=== PATIENT | female | born 1940 | race Caucasian/White ===

== ENCOUNTER → 2020-01-10 11:18 | Outpatient (CLI) | payer MEDICARE, SELFPAY ==
--- NOTE | ~2020-01-10 | MM_ITS ---
EXAMINATION: MM screening [facility] HISTORY: Screening mammogram TECHNIQUE: Craniocaudal and mediolateral oblique 3-D tomosynthesis images were obtained and synthetic 2-D images were generated. CAD analysis was submitted and interpreted. COMPARISON: No prior mammogram is available for comparison at this institution. BREAST PARENCHYMAL COMPOSITION: There are scattered areas of fibroglandular density. FINDINGS: RIGHT BREAST: An asymmetry is present in the middle third of the slightly outer breast 9 cm from the nipple on the craniocaudal view. LEFT BREAST: There is no evidence of suspicious mass, calcification, or architectural distortion to s uggest malignancy. IMPRESSION: 1. Right breast asymmetry on the craniocaudal view which may represent the patient's baseline however no comparison is currently available. 2. Comparison with prior mammograms is necessary. BI-RADS Category 0: Incomplete: Needs comparison with prior mammograms. Reviewed, dictated and finalized at location A. IMPRESSION: 1. Right breast asymmetry on the craniocaudal view which may represent the bruno ent's baseline however no comparison is currently available. 2. Comparison with prior mammograms is necessary. BI-RADS Category 0: Incomplete: Needs comparison with prior mammograms.
== END ==
PROVIDERS: PCP Family Medicine; Visit Provider Family Medicine
DX: Z12.31 Encounter for screening mammogram for malignant neoplasm of breast (principal); R92.8 Other abnormal and inconclusive findings on diagnostic imaging of breast
CPT/HCPCS: 77063; 77067

== ENCOUNTER → 2021-01-11 10:58 | Outpatient (CLI) | payer MEDICARE, SELFPAY ==
--- NOTE | ~2021-01-11 | MM_ITS ---
EXAMINATION: MM screening [facility] HISTORY: Screening mammogram TECHNIQUE: Craniocaudal and mediolateral oblique 3-D tomosynthesis images were obtained and synthetic 2-D images were generated. CAD analysis was submitted and interpreted. COMPARISON: 01/10/2020, 11/02/2018, 10/24/2017 BREAST PARENCHYMAL COMPOSITION: There are scattered areas of fibroglandular density. FINDINGS: Scattered benign-appearing calcifications are present. There is no evidence of suspicious m ass, calcification, or architectural distortion to suggest malignancy in either breast. There has bee n no suspicious interval change. IMPRESSION: 1. No mammographic evidence of malignancy. 2. Recommend routine screening mammography in one year. BI-RADS Category 2: Benign finding(s). Reviewed, dictated and finalized at location A.
== END ==
PROVIDERS: PCP Family Medicine; Visit Provider Family Medicine
DX: Z12.31 Encounter for screening mammogram for malignant neoplasm of breast (principal)
CPT/HCPCS: 77063; 77067

== ENCOUNTER 2021-07-13 11:06 | Outpatient (RCR) | payer MEDICARE, SELFPAY ==
--- NOTE | 2021-07-13 11:51 | PTOPEVAL ---
Thank you for referring Yasmine Rodriguez to [facility].? The patient is scheduled to be seen for therapy? ____x/week for ___ weeks. Please review, sign, date and return this plan of care MORE. I agree with and certify that the following plan of care is medically necessary. Referring Physician Date Admitting Provider: Attending Provider: Tory Pena MD Referring Provider: *PT Outpatient Evaluation Start: 07/13/21 11:20 Freq: Status: Active Protocol: Document 07/13/21 11:20 [facility] (Rec: 07/13/21 11:48 [facility] [id number]) Therapy Assessment Status Assessment Status Assessment Status Evaluation Evaluation Information Problem Diagnosis lumbar radiculopathy Onset 06/12/21 Additional Evaluation Detail oswestry = 36% functionally declined Subjective Information patient reports she is having Query Text:As Reported By Patient/ pain in the lower back and Family down the R side of her lower back into the R hip. she reports the pain does gravitate down the R LE. she reports pulling up the R LE feels heavier going forward than to the side. she reports she has pain in the front and inner part of the R upper thigh and the R buttock and R lower back. she reports she had xrays of the lumbar spine. she reports she has arthritis and scoliosis. she reports she has decreased pain with heat, sitting in recliner. she reports sitting in a hard and upright chair increases her pain. she reports she has been having difficulty with shopping, and standing for increased time (10 minutes). Pain Assessment Timing of Pain Assessment Timing of Pain Assessment Assessment Pain Scale Pain Scale Used Numeric (1 - 10) Self Report Pain Assessment Right Lower Back Reported Pain Level 5 Pain Radiation Right Leg Pain Frequency Acute,Continuous Greatest Pain Intensity 5 Pain Score Pain Score 5: Self Report Interventions Used Interventions Used By Clinicians Heat,Ice,Rest Pain Relief Interventions Used By Medication Patient Other Alleviating Interventions tyl
--- NOTE | 2021-08-08 14:32 | PTOPEVAL ---
Thank you for referring Yasmine Rodriguez to [facility].? The patient is scheduled to be seen for therapy? ____x/week for ___ weeks. Please review, sign, date and return this plan of care MORE. I agree with and certify that the following plan of care is medically necessary. Referring Physician Date Admitting Provider: Attending Provider: Tory Pena MD Referring Provider: *PT Outpatient Evaluation Start: 07/13/21 11:20 Freq: Status: Active Protocol: Document 08/08/21 13:30 [facility] (Rec: 08/08/21 14:31 [facility] [id number]) Evaluation Information Problem Diagnosis lumbar radiculopathy Onset 06/12/21 Pain Assessment Timing of Pain Assessment Timing of Pain Assessment Assessment Pain Scale Pain Scale Used Numeric (1 - 10) Self Report Pain Assessment Right Lower Back Reported Pain Level 2 Greatest Pain Intensity 5 Pain Score Pain Score 2: Self Report Interventions Used Interventions Used By Clinicians Activity or ADL's,Education, Electrical Stimulation, Exercise,Heat Cervical and Lumbar ROM Lumbar ROM Lumbar Flexion Active Ankle Query Text:Hands to: Lumbar Extension (0-40) 20 Query Text:Active in Degrees Lumbar Lateral Flexion Right (0-40) 30 Query Text:Active in Degrees Lumbar Lateral Flexion Left (0-40) 30 Query Text:Active in Degrees Lower Extremity Muscle Strength Testing General Lower Extremity Strength Gross Lower Extremity Strength 5/5 bilateral ankle DF 5/5 bilateral knee extension 5/5 bilateral knee flexion 4-/5 R hip flex 4+/5 L hip flex Muscle Length Testing Muscle Length Testing Left Hamstring Length 10 Query Text:(90 - 90 Position) Right Hamstring Length 10 Query Text:(90 - 90 Position) General Exercise General Exercises Exercise Description Ther ex Query Text:Record Sets, Reps, -ppt x 20 Resistance, and Position -ppt with alt hip flex x 20 -crunch x 20 -diag crunch x 10 ea forrest -supine dying bug x10 bilat -bridging 2 minutes with 10 second hold -standing hip abd/ext x 20 ea forrest -standing hip flex with ppt x 20 -re-evaluation 5 minutes Modalities Electrical Stimulation Lower Back Stimulation Type Premodulated Treatment Duration (minutes)
== END 2021-08-08 16:33 | disposition home or self-care (01) ==
LOC: CHSPT 11:06
PROVIDERS: Visit Provider Family Medicine
DX: M54.50 Low back pain, unspecified (principal)
CPT/HCPCS: 97014; 97110; 97161; G0283

== ENCOUNTER → 2022-02-19 11:25 | Outpatient (CLI) | payer MEDICARE, SELFPAY ==
--- NOTE | ~2022-02-19 | MM_ITS ---
EXAMINATION: MM screening [facility] HISTORY: Screening mammogram TECHNIQUE: Craniocaudal and mediolateral oblique 3-D tomosynthesis images were obtained and synthetic 2-D images were generated. CAD analysis was submitted and interpreted. COMPARISON: 01/11/2021, 01/10/2020, 11/02/2018 BREAST PARENCHYMAL COMPOSITION: There are scattered areas of fibroglandular density. FINDINGS: Scattered benign-appearing calcifications are present. There is no suspicious mass, calcifi cation, or architectural distortion to suggest malignancy in either breast. There has been no suspici ous interval change. IMPRESSION: 1. No mammographic evidence of malignancy. 2. Recommend routine screening mammography in one year. BI-RADS Category 2: Benign finding(s). Reviewed, dictated and finalized at location A.
== END ==
PROVIDERS: PCP Family Medicine; Visit Provider Family Medicine
DX: Z12.31 Encounter for screening mammogram for malignant neoplasm of breast (principal)
CPT/HCPCS: 77063; 77067

== ENCOUNTER → 2023-04-12 09:37 | Outpatient (CLI) | payer MEDICARE, SELFPAY ==
--- NOTE | ~2023-04-12 | MM_ITS ---
EXAMINATION: MM screening [facility] HISTORY: Screening mammogram TECHNIQUE: Craniocaudal and mediolateral oblique 3-D tomosynthesis images were obtained and synthetic 2-D images were generated. CAD analysis was submitted and interpreted. COMPARISON: 02/19/2022, 01/11/2021, 01/06/2020 bilateral screening mammogram examinations BREAST PARENCHYMAL COMPOSITION: There are scattered areas of fibroglandular density. FINDINGS: Multiple benign calcifications are noted bilaterally. Stable fibroglandular asymmetry. Ther e is no evidence of suspicious mass, calcification, or architectural distortion to suggest malignancy in either breast. There has been no suspicious interval change. IMPRESSION: 1. Bilateral benign calcifications. No mammographic evidence of malignancy. 2. Recommend routine screening mammography in one year. BI-RADS Category 2: Benign finding(s). Reviewed, dictated and finalized at location A. ONAL ACCOUNT DIRECTOR
== END ==
DX: Z12.31 Encounter for screening mammogram for malignant neoplasm of breast (principal)
CPT/HCPCS: 77063; 77067

== ENCOUNTER 2023-06-27 16:28 | Emergency (ER) | payer MEDICARE, SELFPAY ==
--- NOTE | ~2023-06-27 | XR_ITS ---
EXAMINATION: XR knee RT 3V DATE: 06/27/2023 17:42 INDICATION: Right knee pain. Fall. TECHNIQUE: 3 views of right knee were obtained. COMPARISON: None. FINDINGS: Bone alignment is normal. There is a fracture of lateral tibial plateau without depression. There is a fracture of fibular neck with impaction. There is moderate osteoarthritis of medial marcela rtment and mild osteoarthritis of lateral and patellofemoral femoral compartments. There is a moderat e-sized knee joint effusion. IMPRESSION: 1. Lateral tibial plateau fracture. 2. Fibular neck fracture. 3. Moderate right knee osteoarthritis. 4. Moderate-sized knee joint effusion. Reviewed, dictated and finalized at location E. MACHINE SET UP OPERATOR
--- NOTE | ~2023-06-27 | XR_ITS ---
EXAMINATION: XR tibia fibula RT 2V DATE: 06/27/2023 17:42 INDICATION: Right lower leg pain. Fall. TECHNIQUE: 2 views of right tibia and fibula on 3 radiographs were obtained. COMPARISON: None. FINDINGS: There is a fracture of lateral tibial plateau without depression. There is a fracture of fi bular neck with impaction. There is moderate right knee osteoarthritis. IMPRESSION: 1. Lateral tibial plateau fracture. 2. Fracture of fibular neck. 3. Moderate right knee osteoarthritis. Reviewed, dictated and finalized at location E. FIRE PREVENTION SPECIALIST
--- NOTE | ~2023-06-27 | XR_ITS ---
EXAMINATION: XR shoulder RT min 2V DATE: 06/27/2023 17:42 INDICATION: Right shoulder pain. Fall. TECHNIQUE: 3 views of right shoulder were obtained. COMPARISON: None. FINDINGS: There is superior subluxation of right humeral head with narrowing of the subacromial space , consistent with rotator cuff tear. No fracture. There is severe osteoarthritis of acromioclavicular joint. The glenohumeral joint is not well profiled. IMPRESSION: 1. Right rotator cuff tear. 2. Severe osteoarthritis of acromioclavicular joint. Reviewed, dictated and finalized at location E. ACULTURE DESIGNER
[2023-06-27 16:28] VITALS: BP 139/79; PULSE 60; RESP 18; TEMP 36.2; O2SAT 100
--- NOTE | 2023-06-27 17:00 | ED.FALL ---
HPI - Fall General Chief Complaint: Fall Stated Complaint: fall down stairs; right shoulder and knee paina Time Seen by Provider: 06/27/23 16:49 Source: patient Mode of arrival: ambulatory Limitations: no limitations History of Present Illness HPI Narrative: Patient is an 82-year-old female with significant past medical history that presents today with fall and multiple injuries. Patient fell going down the stairs at the last stair fell backwards and on her side hitting her right shoulder, her right knee And right tibia. She states that is very painful and she was walking on the stairs and his hematemesis step and slipped backwards. He is taking Tylenol for this. She cannot take ibuprofen or Toradol also because she is diabetic and has chronic kidney disease. He came he has gotten worse lately so she in the midline to take down and/or other medications That do not affect the kidneys. MD complaint: fall Onset (ago): hour(s) Fall from: standing Fall witnessed: yes, by family Place fall occurred: home Loss of consciousness: none Prolonged down time: no Symptoms prior to fall: none Context: tripped/slipped Location of injury - extremities: Right: shoulder, knee and lower leg Severity: moderate Severity scale (1-10): 4 Quality: sharp and stabbing Associated symptoms (after fall): denies Related Data Allergies Allergy/AdvReac Type Severity Reaction Status Date / Time Sulfa (Sulfonamide Allergy Unknown hives/swell Verified 09/01/17 06:16 Antibiotics) ing Review of Systems Review of Systems: All systems reviewed & are unremarkable except as noted in HPI and below Constitutional: Constitutional: Reports no additional constitutional complaints Eyes: Eyes: Reports no additional eye complaints ENT: Reports system reviewed and no additional complaints, except as documented Cardiovascular: Cardiovascular: Reports no additional cardiovascular complaints Respiratory: Respiratory: Reports no additional respiratory complaints Gastrointestinal: Gastrointestinal: Reports no additional gastrointestinal complaints Genitourinary: Genitourinary: Reports no additional female genitourinary complaints Musculoskeletal: Musculoskeletal: Reports no additional musculoskeletal complaints Integumentary/Breasts: Skin/Breast: Reports system reviewed and no additional complaints, except as docu Neurologic: Reports system reviewed and no additional complaints, except as documented Psychiatric: Psychiatric: Reports no additional psychiatric complaints Endocrine: Endocrine: Reports no additional endocrine complaints Hematologic/Lymphatic: Hematologic/Lymphatic: Reports no additional hematologic/lymphatic complaints Allergic/Immunologic: Allergic/Immunologic: Reports no additional allergic/immunologic complaints Exam Const: General: healthy appearing Nutritional Appearance: well nourished Orientation/consciousness: patient oriented x3 Limitations: no limitations HENMT: Head: normal to inspection Ears: external ears normal Face/Nose/Sinus: Normal external nose present Face and sinus: normal facial exam Mouth: Yes Normal oral and palatal mucosa present Eyes: Conjunctivae: conjunctivae normal Pupils: Equal, round and reactive pupils present EOM: EOMs intact bilaterally Direct Ophthalmoscopy: no photophobia Neck: Neck: normal visual inspection Chest: Chest palpation & inspection: normal inspection of the chest Resp: Effort & Inspection: normal respiratory effort Auscultation: clear to auscultation bilaterally Cardio: Rate: regular rate Rhythm: regular rhythm Heart sounds: Murmur heart sound present GI: Inspection: distended Auscultation: normal bowel sounds Back/Spine/Pelvis: Back: no CVA tenderness Skin: General skin exam: normal color Rashes: no rashes Wounds: no wounds Neuro: General: patient oriented x3 Cranial nerves: Yes Nystagmus not present Speech: normal speech Extrem: General: normal to inspection Psy
[2023-06-27] MEDS: traMADol HCL (*CRX) 50 MG TABLET PO (17:06)
[2023-06-27 18:26] VITALS: BP 126/89; PULSE 115; RESP 20; O2SAT 97
--- NOTE | 2023-06-27 18:54 | PC.NURSE ---
extensive assistance with getting pt into wheelchair and into personal vehicle per this rn.
--- NOTE | 2023-06-27 18:56 | PC.NURSE ---
disk of xrays sent with pt
== END 2023-06-27 18:50 | disposition home or self-care (01) ==
PROVIDERS: Emergency Provider Family Medicine
DX: S82.141A Displaced bicondylar fracture of right tibia, initial encounter for closed fracture (principal); S82.491A Other fracture of shaft of right fibula, initial encounter for closed fracture; W10.9XXA Fall (on) (from) unspecified stairs and steps, initial encounter; Y92.009 Unspecified place in unspecified non-institutional (private) residence as the place of occurrence of the external cause
CPT/HCPCS: 73030; 73562; 73590; 99284; A4565; A9270; L1830

== ENCOUNTER 2023-07-02 14:28 | Inpatient (IN) | payer MEDICARE, SELFPAY ==
--- NOTE | 2023-07-02 14:35 | ADMGEN ---
This patient, Yasmine Rodriguez, was admitted to 2nd Floor Room 203-2. Patient/family oriented to hospital policies and general routines including ID bracelet, bed and alarms, visiting hours, pain management, procedures, bathroom and other care routines, personal items, smoking policy, room service/diet, and visiting hours. Information on how to activate the Rapid Response Team has been discussed. Patient/Family are encouraged to report perceived risks to care and to ask questions if they do not understand what they are told or what they should do.
[2023-07-02 15:08] VITALS: BMI 30.3
[2023-07-02 15:11] VITALS: BP 148/43; PULSE 67; RESP 18; TEMP 36.4; O2SAT 92
[2023-07-02 16:00] VITALS: BP 151/55; PULSE 71; RESP 20; TEMP 36.4; O2SAT 97
--- NOTE | 2023-07-02 16:09 | PM.IMHP ---
H&P: HPI History of Present Illness Date/Time: 07/02/23 16:09 Chief Complaint: Swing bed for right tibia plateau fracture and right rotator cuff tear Narrative: This is an 82 year old female patient with a history of well controlled Type 2 DM and CKD who recently fell down some stairs injuring her right leg and right shoulder. Patient initially seen in this ER and was placed in knee immobilizer, given pain meds and discharged home with instructions to be non weight bearing RLE. Pain was not controlled with tramadol as prescribed so she went to [facility] in [place] and was admitted for pain control, ROGER and leukocytosis. Orthopedics consulted on patient and agreed no surgical intervention was indicated. PT/OT worked with patient but because she is non weight bearing to both right upper and right lower extremities she needed SNF for additional therapy before returning home. Patient/family wanted to do Swing bed at our facility rather than stay in [place] for therapy. Patient arrived today in transfer by private vehicle with family but needed help to get out of the car and into wheelchair due to injuries. Review of Systems Review of Systems: All systems reviewed & are unremarkable except as noted in HPI and below PMFSH Social History Social History Smoking packs per day: 0.25 Smoking cigarettes per day: 5.0 Smoking status: Current some day smoker Tobacco type: cigarettes Second hand tobacco smoke exposure: No Alcohol intake: never Substance use: never Do You Feel Safe in your Home?: Yes Lack of Transportation: No Lack of Food: Never True Current Housing: I Have Housing Concerned About Future Housing: No Difficulty Paying Gas/Electric Bills: No Difficulty Paying for Meds: No Currently Unemployed: No Education: Trade/Vocational Certificate Difficulty w/ Childcare or Family Care: No Spiritual care concerns: No Meds Home Medications and Allergies Home Medications Medication Instructions Recorded Confirmed Type Antacid (calcium carbonate) 1,000 mg PRN PRN indigestion 07/02/23 07/02/23 History acetaminophen 500 mg tablet 1,000 mg Q1-4H PRN Pain, Moderate 07/02/23 07/02/23 History docusate sodium 100 mg capsule 100 mg PO DAILY 07/02/23 07/02/23 History enoxaparin 30 mg/0.3 mL 30 mg subcut DAILY 07/02/23 07/02/23 History subcutaneous syringe glipizide 10 mg tablet, extended 10 mg PO DAILY 07/02/23 07/02/23 History release 24 hr glipizide 5 mg tablet 5 mg PO DAILY 07/02/23 07/02/23 History hydrocodone 5 mg-acetaminophen 325 1 tablet PO Q6H PRN Pain, Severe 07/02/23 07/02/23 History mg tablet levothyroxine 100 mcg tablet 100 mcg DAILY 07/02/23 07/02/23 History losartan 50 mg tablet 50 mg PO DAILY 07/02/23 07/02/23 History magnesium oxide 400 mg PO DAILY 07/02/23 07/02/23 History ondansetron HCl 4 mg/2 mL 4 mg IV Q6-8H PRN Nausea 07/02/23 07/02/23 History intravenous syringe polyethylene glycol 1 ea miscellaneous DAILY 07/02/23 07/02/23 History pravastatin 10 mg tablet 10 mg PO HS 07/02/23 07/02/23 History sennosides 8.6 mg tablet (Senokot) 8.6 mg DAILY PRN Constipation 07/02/23 07/02/23 History sodium phosphates 19 gram-7 118 ml RECTAL ONCE 07/02/23 07/02/23 History gram/118 mL enema (Fleet Enema) tramadol 50 mg tablet 50 mg PO Q6H PRN Pain (Scale Score 07/02/23 07/02/23 History 4-6) Allergies Allergy/AdvReac Type Severity Reaction Status Date / Time Sulfa (Sulfonamide Allergy Unknown hives/swell Verified 09/01/17 06:16 Antibiotics) ing Vital Signs Vital Signs - 24 hr 07/02/23 15:11 Temperature 36.4 C L Pulse Rate 67 Respiratory Rate 18 Blood Pressure 148/43 H Pulse Oximetry 92 Oxygen Delivery Room Air Exam Narrative: GENERAL: Well-appearing, well-nourished, and in no acute distress. HEAD: Normocephalic, atraumatic. ENT:? Mucous membranes moist. CHEST: Clear to auscultation.? No
[2023-07-02 17:06] LABS: Glucose Point of Care 186 mg/dl (65-105)
[2023-07-02] MEDS: ACETAMINOPHEN 500 MG TABLET 1000 MG PO (17:42)
[2023-07-02] MEDS: HYDROcodone/acetaminophen (*CRX) 5-325 MG TABLET 1 TAB PO (19:27)
[2023-07-02 20:00] VITALS: PULSE 70; RESP 18; O2SAT 97
[2023-07-02] MEDS: PRAVASTATIN SODIUM 10 MG TABLET PO (21:05)
[2023-07-02] MEDS: ENOXAPARIN 30 MG/0.3 ML SYRINGE SUB-Q (21:06)
[2023-07-03] VITALS: BP 122/52; PULSE 70; RESP 18; TEMP 36.6; O2SAT 97
[2023-07-03] MEDS: HYDROcodone/acetaminophen (*CRX) 5-325 MG TABLET 1 TAB PO ×4 (01:57→22:20)
[2023-07-03] MEDS: LEVOTHYROXINE SODIUM 100 MCG TABLET PO (06:46)
[2023-07-03 07:45] VITALS: BP 150/47; PULSE 63; RESP 16; TEMP 36.4; O2SAT 96
[2023-07-03 08:20] LABS: Glucose Point of Care 159 mg/dl (65-105)
[2023-07-03] MEDS: glipiZIDE XL 5 MG TABCR PO (09:41)
[2023-07-03] MEDS: CYANOCOBALAMIN 1,000 MCG TABLET 1000 MCG PO (09:41)
[2023-07-03] MEDS: OMEGA 3 POLYUNSAT FATTY ACIDS 1 GM CAP PO (09:41)
[2023-07-03] MEDS: ASCORBIC ACID 500 MG TABLET 1000 MG PO (09:41)
[2023-07-03] MEDS: polyethylene glycoL 3350 17 GM POWD.PACK PO (09:42)
[2023-07-03] MEDS: ZINC SULFATE 220 MG CAPSULE PO (09:42)
[2023-07-03] MEDS: IRBESARTAN 150 MG TABLET PO (09:42)
[2023-07-03] MEDS: DOCUSATE SODIUM 100 MG CAPSULE PO (09:42)
[2023-07-03] MEDS: MAGNESIUM OXIDE 400 MG TABLET PO (09:42)
[2023-07-03] MEDS: DICLOFENAC SODIUM 1% 100 GM GEL (*BKC) 1 APPLIC TOPICAL ×2 (13:01→20:15)
[2023-07-03] MEDS: MENTHOL 10% / METHYL SALICYLATE 15% 57 GM TUBE 1 APPLIC TOPICAL (16:17)
[2023-07-03 16:24] LABS: Glucose Point of Care 169 mg/dl (65-105)
[2023-07-03 16:40] VITALS: BP 149/52; PULSE 69; RESP 16; TEMP 36.7; O2SAT 94
[2023-07-03] MEDS: ENOXAPARIN 30 MG/0.3 ML SYRINGE SUB-Q (20:15)
[2023-07-03] MEDS: PRAVASTATIN SODIUM 10 MG TABLET PO (20:15)
[2023-07-03] MEDS: ACETAMINOPHEN 500 MG TABLET 1000 MG PO (23:33)
[2023-07-04] VITALS: BP 183/75; PULSE 70; RESP 15; TEMP 36.6; O2SAT 97
[2023-07-04] MEDS: LEVOTHYROXINE SODIUM 100 MCG TABLET PO (05:43)
[2023-07-04] MEDS: HYDROcodone/acetaminophen (*CRX) 5-325 MG TABLET 1 TAB PO ×3 (05:43→19:19)
[2023-07-04 08:00] VITALS: BP 150/50; PULSE 78; RESP 18; TEMP 36.6; O2SAT 94
[2023-07-04] MEDS: polyethylene glycoL 3350 17 GM POWD.PACK PO (08:52)
[2023-07-04] MEDS: IRBESARTAN 150 MG TABLET PO (08:53)
[2023-07-04] MEDS: glipiZIDE XL 5 MG TABCR PO (08:53)
[2023-07-04] MEDS: ASCORBIC ACID 500 MG TABLET 1000 MG PO (08:53)
[2023-07-04] MEDS: CYANOCOBALAMIN 1,000 MCG TABLET 1000 MCG PO (08:53)
[2023-07-04] MEDS: ZINC SULFATE 220 MG CAPSULE PO (08:54)
[2023-07-04] MEDS: DOCUSATE SODIUM 100 MG CAPSULE PO (08:54)
[2023-07-04] MEDS: MAGNESIUM OXIDE 400 MG TABLET PO (08:54)
[2023-07-04] MEDS: OMEGA 3 POLYUNSAT FATTY ACIDS 1 GM CAP PO (08:54)
[2023-07-04] MEDS: MENTHOL 10% / METHYL SALICYLATE 15% 57 GM TUBE 1 APPLIC TOPICAL (08:55)
[2023-07-04 15:43] VITALS: BP 127/61; PULSE 64; RESP 18; TEMP 36.6; O2SAT 95
[2023-07-04] MEDS: DICLOFENAC SODIUM 1% 100 GM GEL (*BKC) 1 APPLIC TOPICAL (15:49)
[2023-07-04 16:29] LABS: Glucose Point of Care 177 mg/dl (65-105)
--- NOTE | 2023-07-04 19:00 | PC.NURSE ---
Pt doing well c assist x1 and use of gait belt and walker, Pt pivots and moves using good leg and is understanding of non wt bearing to Rt leg. She is able to assist moving herself up in bed. Tolerating well p pain m eds given, call meier at pt side.
[2023-07-04 20:00] VITALS: PULSE 80; RESP 18; O2SAT 97
[2023-07-04] MEDS: PRAVASTATIN SODIUM 10 MG TABLET PO (21:27)
[2023-07-04] MEDS: ENOXAPARIN 30 MG/0.3 ML SYRINGE SUB-Q (21:27)
[2023-07-04 23:38] VITALS: BP 133/67; PULSE 65; RESP 18; TEMP 36.6; O2SAT 96
[2023-07-05] MEDS: HYDROcodone/acetaminophen (*CRX) 5-325 MG TABLET 1 TAB PO ×2 (02:15→20:06)
--- NOTE | 2023-07-05 02:18 | PC.NURSE ---
Pt assisted c gait and walker and pivoting movement to commode, tolerated well and assist back to bed, brace loosened from leg while in recumbant position, pt given [place] per request for her pain in her leg. Call meier at pt side.
[2023-07-05 05:16] LABS: Hematocrit 33.4 % (35.0-42.0); Hemoglobin 10.4 g/dL (11.7-13.8); Mean Corpuscular HGB Conc 31.1 g/dL (32.0-36.0); Mean Corpuscular Hemoglobin 29.1 pg (27.0-31.0); Mean Corpuscular Volume 93.6 fL (78.0-102.0); Platelet Count Result 318 K/mm3 (150-420); Red Blood Count 3.57 M/mm3 (4.20-5.40); Red Cell Distribution Width 12.6 % (11.6-14.4); White Blood Count 11.1 K/mm3 (4.8-10.8)
[2023-07-05 05:24] LABS: Anion Gap 5 mmol/L (8-16); Blood Urea Nitrogen 28 mg/dL (7-18); Carbon Dioxide 30 mmol/L (21-32); Chloride 101 mmol/L (98-108); Estimated CRCL calculation 28 ml/min; Estimated Glomerular Filt Rate 34; Glucose 171 mg/dL (70-99); Osmolality Calculated 291 mOsm/kg (285-295); Potassium 4.9 mmol/L (3.5-5.1); Sodium 136 mmol/L (136-145)
[2023-07-05] MEDS: LEVOTHYROXINE SODIUM 100 MCG TABLET PO (06:24)
[2023-07-05 08:00] VITALS: BP 156/52; PULSE 68; RESP 16; TEMP 36.4; O2SAT 97
[2023-07-05 08:17] LABS: Glucose Point of Care 187 mg/dl (65-105)
[2023-07-05] MEDS: ZINC SULFATE 220 MG CAPSULE PO (09:39)
[2023-07-05] MEDS: ASCORBIC ACID 500 MG TABLET 1000 MG PO (09:39)
[2023-07-05] MEDS: polyethylene glycoL 3350 17 GM POWD.PACK PO (09:39)
[2023-07-05] MEDS: CYANOCOBALAMIN 1,000 MCG TABLET 1000 MCG PO (09:39)
[2023-07-05] MEDS: glipiZIDE XL 5 MG TABCR PO (09:39)
[2023-07-05] MEDS: IRBESARTAN 150 MG TABLET PO (09:39)
[2023-07-05] MEDS: OMEGA 3 POLYUNSAT FATTY ACIDS 1 GM CAP PO (09:39)
[2023-07-05] MEDS: DOCUSATE SODIUM 100 MG CAPSULE PO (09:39)
[2023-07-05] MEDS: MENTHOL 10% / METHYL SALICYLATE 15% 57 GM TUBE 1 APPLIC TOPICAL (09:39)
[2023-07-05] MEDS: MAGNESIUM OXIDE 400 MG TABLET PO (09:39)
[2023-07-05] MEDS: DICLOFENAC SODIUM 1% 100 GM GEL (*BKC) 1 APPLIC TOPICAL ×2 (13:07→20:06)
[2023-07-05 16:00] VITALS: BP 166/58; PULSE 66; RESP 18; TEMP 36.6; O2SAT 96
[2023-07-05 17:20] LABS: Glucose Point of Care 153 mg/dl (65-105)
[2023-07-05] MEDS: ENOXAPARIN 30 MG/0.3 ML SYRINGE SUB-Q (20:05)
[2023-07-05] MEDS: PRAVASTATIN SODIUM 10 MG TABLET PO (20:06)
[2023-07-06] VITALS: BP 156/53; PULSE 65; RESP 16; TEMP 36.4; O2SAT 97
[2023-07-06] MEDS: LEVOTHYROXINE SODIUM 100 MCG TABLET PO (06:02)
[2023-07-06 08:00] VITALS: BP 112/64; PULSE 60; RESP 16; TEMP 35.8; O2SAT 98
[2023-07-06 08:14] LABS: Glucose Point of Care 183 mg/dl (65-105)
[2023-07-06] MEDS: DICLOFENAC SODIUM 1% 100 GM GEL (*BKC) 1 APPLIC TOPICAL ×4 (09:20→20:45)
[2023-07-06] MEDS: OMEGA 3 POLYUNSAT FATTY ACIDS 1 GM CAP PO (09:20)
[2023-07-06] MEDS: glipiZIDE XL 5 MG TABCR PO (09:21)
[2023-07-06] MEDS: MAGNESIUM OXIDE 400 MG TABLET PO (09:21)
[2023-07-06] MEDS: ZINC SULFATE 220 MG CAPSULE PO (09:21)
[2023-07-06] MEDS: CYANOCOBALAMIN 1,000 MCG TABLET 1000 MCG PO (09:21)
[2023-07-06] MEDS: IRBESARTAN 150 MG TABLET PO (09:21)
[2023-07-06] MEDS: ASCORBIC ACID 500 MG TABLET 1000 MG PO (09:21)
[2023-07-06] MEDS: ACETAMINOPHEN 500 MG TABLET 1000 MG PO (15:22)
[2023-07-06 16:00] VITALS: BP 154/59; PULSE 66; RESP 18; TEMP 36.6; O2SAT 97
[2023-07-06 16:56] LABS: Glucose Point of Care 164 mg/dl (65-105)
[2023-07-06 20:00] VITALS: PULSE 66; RESP 18; O2SAT 97
[2023-07-06] MEDS: HYDROcodone/acetaminophen (*CRX) 5-325 MG TABLET 1 TAB PO (20:45)
[2023-07-06] MEDS: traZODone HCL 50 MG TABLET PO (20:45)
[2023-07-06] MEDS: PRAVASTATIN SODIUM 10 MG TABLET PO (20:45)
[2023-07-06] MEDS: ENOXAPARIN 30 MG/0.3 ML SYRINGE SUB-Q (20:46)
[2023-07-06 23:57] VITALS: BP 157/64; PULSE 65; RESP 16; TEMP 36.8; O2SAT 95
[2023-07-07] MEDS: LEVOTHYROXINE SODIUM 100 MCG TABLET PO (06:11)
[2023-07-07 07:55] VITALS: BP 132/52; PULSE 60; RESP 16; TEMP 36.2; O2SAT 97
[2023-07-07 08:01] LABS: Glucose Point of Care 182 mg/dl (65-105)
[2023-07-07] MEDS: IRBESARTAN 150 MG TABLET PO (09:43)
[2023-07-07] MEDS: CYANOCOBALAMIN 1,000 MCG TABLET 1000 MCG PO (09:43)
[2023-07-07] MEDS: ASCORBIC ACID 500 MG TABLET 1000 MG PO (09:43)
[2023-07-07] MEDS: MAGNESIUM OXIDE 400 MG TABLET PO (09:43)
[2023-07-07] MEDS: OMEGA 3 POLYUNSAT FATTY ACIDS 1 GM CAP PO (09:43)
[2023-07-07] MEDS: glipiZIDE XL 5 MG TABCR PO (09:43)
[2023-07-07] MEDS: ZINC SULFATE 220 MG CAPSULE PO (09:43)
[2023-07-07] MEDS: DICLOFENAC SODIUM 1% 100 GM GEL (*BKC) 1 APPLIC TOPICAL ×4 (09:44→21:06)
[2023-07-07] MEDS: HYDROcodone/acetaminophen (*CRX) 5-325 MG TABLET 1 TAB PO ×2 (09:47→18:16)
[2023-07-07 16:35] VITALS: BP 157/49; PULSE 63; RESP 16; TEMP 36.6; O2SAT 98
[2023-07-07 16:57] LABS: Glucose Point of Care 181 mg/dl (65-105)
[2023-07-07 19:53] VITALS: PULSE 63; RESP 16; O2SAT 98
[2023-07-07] MEDS: ENOXAPARIN 30 MG/0.3 ML SYRINGE SUB-Q (21:09)
[2023-07-07] MEDS: PRAVASTATIN SODIUM 10 MG TABLET PO (21:10)
[2023-07-07] MEDS: traZODone HCL 50 MG TABLET PO (21:11)
[2023-07-08] VITALS: BP 126/62; PULSE 64; RESP 16; TEMP 36.8; O2SAT 94
[2023-07-08] MEDS: ACETAMINOPHEN 500 MG TABLET 1000 MG PO ×2 (03:17→13:21)
[2023-07-08] MEDS: LEVOTHYROXINE SODIUM 100 MCG TABLET PO (06:00)
[2023-07-08 07:45] LABS: Glucose Point of Care 176 mg/dl (65-105)
[2023-07-08 07:50] VITALS: BP 125/43; PULSE 57; RESP 16; TEMP 36.3; O2SAT 99
[2023-07-08] MEDS: HYDROcodone/acetaminophen (*CRX) 5-325 MG TABLET 1 TAB PO ×2 (08:36→19:39)
[2023-07-08] MEDS: IRBESARTAN 150 MG TABLET PO (08:37)
[2023-07-08] MEDS: CYANOCOBALAMIN 1,000 MCG TABLET 1000 MCG PO (08:37)
[2023-07-08] MEDS: MAGNESIUM OXIDE 400 MG TABLET PO (08:37)
[2023-07-08] MEDS: ASCORBIC ACID 500 MG TABLET 1000 MG PO (08:37)
[2023-07-08] MEDS: OMEGA 3 POLYUNSAT FATTY ACIDS 1 GM CAP PO (08:38)
[2023-07-08] MEDS: ZINC SULFATE 220 MG CAPSULE PO (08:38)
[2023-07-08] MEDS: glipiZIDE XL 5 MG TABCR PO (08:39)
[2023-07-08] MEDS: DICLOFENAC SODIUM 1% 100 GM GEL (*BKC) 1 APPLIC TOPICAL ×4 (08:39→21:06)
[2023-07-08 16:00] VITALS: BP 134/50; PULSE 66; RESP 20; TEMP 37.1; O2SAT 94
[2023-07-08 17:06] LABS: Glucose Point of Care 146 mg/dl (65-105)
[2023-07-08 19:56] VITALS: PULSE 68; RESP 18; O2SAT 96
[2023-07-08] MEDS: PRAVASTATIN SODIUM 10 MG TABLET PO (21:05)
[2023-07-08] MEDS: traZODone HCL 50 MG TABLET PO (21:05)
[2023-07-08] MEDS: ENOXAPARIN 30 MG/0.3 ML SYRINGE SUB-Q (21:07)
--- NOTE | 2023-07-08 23:30 | PC.NURSE ---
Pt mobility is improving, she is able to use tied gait belt to move her leg from bed c the brace in place to her Rt leg, she moves well unassisted c scoot and shuffle method to BSC and back to bed. Pt calls and uses meier when needed.
[2023-07-08 23:53] VITALS: BP 128/68; PULSE 62; RESP 18; TEMP 36.6; O2SAT 98
[2023-07-09] MEDS: LEVOTHYROXINE SODIUM 100 MCG TABLET PO (06:35)
[2023-07-09 08:00] VITALS: BP 130/66; PULSE 62; RESP 14; TEMP 36.6; O2SAT 98
[2023-07-09 08:06] LABS: Glucose Point of Care 178 mg/dl (65-105)
--- NOTE | 2023-07-09 08:45 | PM.IMPN ---
Progress Note: A&P Assessment and Plan (1) Physical deconditioning: Code(s): R53.81 - Other malaise Status: Acute Assessment and Plan: 07/02/23: PT/OT for swing bed 07/09/23: due to right tibial plateau fracture and right rotator cuff tear status post fall continue with PT OT for swing bed care management following for additional rehab needs (2) Fracture of right tibial plateau: Code(s): S82.141A - Displaced bicondylar fracture of right tibia, initial encounter for closed fracture Status: Acute Assessment and Plan: 07/02/23: PT/OT, NWB RLE and limited RUE use due to rotator cuff tear 07/09/23: continue with PT and OT weight-bearing as tolerated to right upper extremity nonweightbearing to right lower extremity patient has ortho appointment today and we await any further instructions from their standpoint (3) Rotator cuff tear, right: Code(s): M75.101 - Unspecified rotator cuff tear or rupture of right shoulder, not specified as traumatic Status: Acute Assessment and Plan: 07/02/23: PT/OT, NWB RLE and limited RUE use due to rotator cuff tear 07/09/23: continue PT and OT weight-bearing as tolerated to right upper extremity (4) CKD (chronic kidney disease): Code(s): N18.9 - Chronic kidney disease, unspecified Status: Chronic Assessment and Plan: 07/02/23: Avoid nephrotoxins 07/09/23: BUN 31, creatinine 1.64, EGFR 30 will recheck in 1 week if patient is still here looks to be at baseline (5) Diabetes type 2, controlled: Code(s): E11.9 - Type 2 diabetes mellitus without complications Status: Acute Assessment and Plan: 07/02/23: Diabetic diet, BID AC fingerstick glucose breakfast and supper with low dose SSI, home glipizide XL 5 mg and hypoglycemia protocol. 07/09/23: blood sugars ranging 146-181 will increase to medium dose sliding scale continue hypoglycemic protocol continue Accu-Cheks continue diabetic diet Hemoglobin A1c is 6.8 Time Spent With Patient Time with patient: 15 - 25 minutes Subjective Date/time seen: 07/09/23 08:45 Interval history: 07/02/23: (Copied from chart) This is an 82 year old female patient with a history of well controlled Type 2 DM and CKD who recently fell down some stairs injuring her right leg and right shoulder.? Patient initially seen in this ER and was placed in knee immobilizer, given pain meds and discharged home with instructions to be non weight bearing RLE.? Pain was not controlled with tramadol as prescribed so she went to [facility] in [place] and was admitted for pain control, ROGER and leukocytosis.? Orthopedics consulted on patient and agreed no surgical intervention was indicated.? PT/OT worked with patient but because she is non weight bearing to both right upper and right lower extremities she needed SNF for additional therapy before returning home.? Patient/family wanted to do Swing bed at our facility rather than stay in [place] for therapy.? Patient arrived today in transfer by private vehicle with family but needed help to get out of the car and into wheelchair due to injuries. 07/09/23: On examination today patient is alert and oriented x3, lying in the bed. Patient denies Any fever, chills, nausea, vomiting, abdominal pain, shortness a breath, chest pain, lightheadedness, dizziness, numbness, tingling, headache, or vision changes. Patient endorses diarrhea this past week and they held her Colace to to this. She does state that that has subsided. She reports her pain to be 8/10 however she just worked with therapy twice this morning are ready. Labs today reveal white blood cell count of 12.5, hemoglobin A1c of 6.8, blood glucose ranging 146-257, BUN 31, creatinine 1.64, sodium 134, albumin 2.9.Care conference was yesterday and they were asking for additional rehab days. Plan for ortho appointment today. We will await any additional orders fro
[2023-07-09 09:07] LABS: Hematocrit 35.7 % (35.0-42.0); Hemoglobin 11.3 g/dL (11.7-13.8); Mean Corpuscular HGB Conc 31.7 g/dL (32.0-36.0); Mean Corpuscular Hemoglobin 29.3 pg (27.0-31.0); Mean Corpuscular Volume 92.5 fL (78.0-102.0); Mean Platelet Volume 9.6 fl (9.2-11.8); Platelet Count Result 384 K/mm3 (150-420); Red Blood Count 3.86 M/mm3 (4.20-5.40); Red Cell Distribution Width 12.9 % (11.6-14.4); White Blood Count 12.5 K/mm3 (4.8-10.8)
[2023-07-09 09:26] LABS: Alanine Aminotransferase 12 U/L (14-59); Albumin Level 2.9 g/dL (3.4-5.0); Alkaline Phosphatase 82 U/L (46-116); Anion Gap 10 mmol/L (8-16); Aspartate Amino Transferase 28 U/L (15-37); Bilirubin,Total 0.6 mg/dL (0.00-1.00); Blood Urea Nitrogen 31 mg/dL (7-18); Calcium 9.3 mg/dL (8.5-10.1); Carbon Dioxide 26 mmol/L (21-32); Chloride 98 mmol/L (98-108); Estimated CRCL calculation 25 ml/min; Estimated Glomerular Filt Rate 30; Glucose 257 mg/dL (70-99); Osmolality Calculated 293 mOsm/kg (285-295); Potassium 4.5 mmol/L (3.5-5.1); Sodium 134 mmol/L (136-145); Total Protein 7.6 g/dL (6.4-8.2)
[2023-07-09] MEDS: MAGNESIUM OXIDE 400 MG TABLET PO (09:26)
[2023-07-09] MEDS: ASCORBIC ACID 500 MG TABLET 1000 MG PO (09:26)
[2023-07-09] MEDS: OMEGA 3 POLYUNSAT FATTY ACIDS 1 GM CAP PO (09:26)
[2023-07-09] MEDS: CYANOCOBALAMIN 1,000 MCG TABLET 1000 MCG PO (09:26)
[2023-07-09] MEDS: IRBESARTAN 150 MG TABLET PO (09:27)
[2023-07-09] MEDS: DOCUSATE SODIUM 100 MG CAPSULE PO (09:27)
[2023-07-09] MEDS: glipiZIDE XL 5 MG TABCR PO (09:27)
[2023-07-09] MEDS: ZINC SULFATE 220 MG CAPSULE PO (09:27)
[2023-07-09] MEDS: DICLOFENAC SODIUM 1% 100 GM GEL (*BKC) 1 APPLIC TOPICAL ×2 (09:30→17:55)
[2023-07-09 10:00] LABS: Hemoglobin A1C 6.8 % (<5.7)
--- NOTE | 2023-07-09 15:57 | PC.NURSE ---
Patient returned to facility from MD appt. Patient accompanied by daughter and grandson. Daughter stated that the MD said patient should move her leg around more but must remain NWB on right leg. Physical Therapy notified of patient's status.
[2023-07-09 16:00] VITALS: BP 142/53; PULSE 70; RESP 16; TEMP 36.8; O2SAT 95
[2023-07-09] MEDS: INSULIN HUMAN LISPRO (*BKC) 1,000 UNITS/10 ML VIAL SUB-Q (17:59)
[2023-07-09 18:02] LABS: Glucose Point of Care 245 mg/dl (65-105)
[2023-07-09] MEDS: HYDROcodone/acetaminophen (*CRX) 5-325 MG TABLET 1 TAB PO (19:25)
[2023-07-09] MEDS: traZODone HCL 50 MG TABLET PO (19:25)
[2023-07-09] MEDS: PRAVASTATIN SODIUM 10 MG TABLET PO (19:25)
[2023-07-09] MEDS: ENOXAPARIN 30 MG/0.3 ML SYRINGE SUB-Q (19:26)
[2023-07-09 20:00] VITALS: PULSE 70; RESP 16; O2SAT 95
[2023-07-10] VITALS: BP 130/41; PULSE 70; RESP 16; TEMP 37.1; O2SAT 94
[2023-07-10] MEDS: LEVOTHYROXINE SODIUM 100 MCG TABLET PO (05:57)
[2023-07-10 07:42] LABS: Glucose Point of Care 155 mg/dl (65-105)
[2023-07-10 08:00] VITALS: BP 119/49; PULSE 61; RESP 18; TEMP 36.1; O2SAT 96
[2023-07-10] MEDS: IRBESARTAN 150 MG TABLET PO (09:11)
[2023-07-10] MEDS: ZINC SULFATE 220 MG CAPSULE PO (09:11)
[2023-07-10] MEDS: glipiZIDE XL 5 MG TABCR PO (09:11)
[2023-07-10] MEDS: DICLOFENAC SODIUM 1% 100 GM GEL (*BKC) 1 APPLIC TOPICAL ×4 (09:12→21:12)
[2023-07-10] MEDS: OMEGA 3 POLYUNSAT FATTY ACIDS 1 GM CAP PO (09:12)
[2023-07-10] MEDS: HYDROcodone/acetaminophen (*CRX) 5-325 MG TABLET 1 TAB PO ×2 (09:12→21:22)
[2023-07-10] MEDS: MAGNESIUM OXIDE 400 MG TABLET PO (09:12)
[2023-07-10] MEDS: CYANOCOBALAMIN 1,000 MCG TABLET 1000 MCG PO (09:12)
[2023-07-10] MEDS: ASCORBIC ACID 500 MG TABLET 1000 MG PO (09:12)
[2023-07-10 16:00] VITALS: BP 126/51; PULSE 63; RESP 18; TEMP 36.6; O2SAT 93
[2023-07-10 17:04] LABS: Glucose Point of Care 127 mg/dl (65-105)
[2023-07-10 20:00] VITALS: PULSE 63; RESP 18; O2SAT 93
[2023-07-10] MEDS: ENOXAPARIN 30 MG/0.3 ML SYRINGE SUB-Q (21:20)
[2023-07-10] MEDS: PRAVASTATIN SODIUM 10 MG TABLET PO (21:22)
[2023-07-10] MEDS: traZODone HCL 50 MG TABLET PO (21:22)
[2023-07-11] VITALS: BP 125/47; PULSE 69; RESP 16; TEMP 36.9; O2SAT 94
[2023-07-11] MEDS: LEVOTHYROXINE SODIUM 100 MCG TABLET PO (05:54)
[2023-07-11 08:00] VITALS: BP 129/44; PULSE 62; RESP 16; TEMP 36.2; O2SAT 96
[2023-07-11] MEDS: OMEGA 3 POLYUNSAT FATTY ACIDS 1 GM CAP PO (08:03)
[2023-07-11] MEDS: glipiZIDE XL 5 MG TABCR PO (08:03)
[2023-07-11] MEDS: IRBESARTAN 150 MG TABLET PO (08:03)
[2023-07-11] MEDS: HYDROcodone/acetaminophen (*CRX) 5-325 MG TABLET 1 TAB PO (08:03)
[2023-07-11] MEDS: MAGNESIUM OXIDE 400 MG TABLET PO (08:03)
[2023-07-11] MEDS: ASCORBIC ACID 500 MG TABLET 1000 MG PO (08:03)
[2023-07-11] MEDS: CYANOCOBALAMIN 1,000 MCG TABLET 1000 MCG PO (08:03)
[2023-07-11] MEDS: ZINC SULFATE 220 MG CAPSULE PO (08:03)
[2023-07-11] MEDS: DICLOFENAC SODIUM 1% 100 GM GEL (*BKC) 1 APPLIC TOPICAL (08:06)
[2023-07-11 08:08] LABS: Glucose Point of Care 182 mg/dl (65-105)
--- NOTE | 2023-07-11 08:18 | PM.DS ---
DS: Admitting Diagnosis Discharge Date 07/11/23 Admitting Diagnosis fracture of the right tibial plateau right rotator cuff tear chronic kidney disease diabetes mellitus type 2 physical deconditioning DS: Discharge Diagnosis Discharge Diagnosis (1) Physical deconditioning: Code(s): R53.81 - Other malaise Status: Acute (2) Fracture of right tibial plateau: Code(s): S82.141A - Displaced bicondylar fracture of right tibia, initial encounter for closed fracture Status: Acute (3) Rotator cuff tear, right: Code(s): M75.101 - Unspecified rotator cuff tear or rupture of right shoulder, not specified as traumatic Status: Acute (4) CKD (chronic kidney disease): Code(s): N18.9 - Chronic kidney disease, unspecified Status: Chronic (5) Diabetes type 2, controlled: Code(s): E11.9 - Type 2 diabetes mellitus without complications Status: Acute DS: Summary Hospital Course Reason for hospitalization: fracture of the right tibial plateau right rotator cuff tear chronic kidney disease diabetes mellitus type 2 physical deconditioning Hospital Course: this is an 82-year-old female patient who presented to the hospital on 07/02/2023 for rehab services and swing bed placement. She recently had a fall down some stairs injuring her right leg and her right shoulder. She has a fracture of the right tibial plateau and was placed in a knee immobilizer and she also has a right rotator cuff tear. She was initially seen in the ER and was placed in knee immobilizer, given pain medications in the discharge home with instructions to be nonweightbearing on the right lower extremity. She went to [facility] in [place] due to her pain being out of control and they found that she had an acute kidney injury and leukocytosis. Orthopedics was consulted and agreed no surgical intervention was indicated at that time. PT and OT worked with her for strength training in her right upper extremity and right lower extremity. She was requiring additional rehab and came to [facility] for swing bed placement. She is now being transferred to his detention for usp. Patient is stable for discharge at this time. Labs on 07/09 shown a white blood cell count 12.5, hemoglobin 11.3, sodium 134, creatinine 1.64, blood sugars 178-257, hemoglobin A1c was 6.8, albumin 2.9. Dr. Delcid will be following her on an outpatient basis for orthopedic needs. final diagnosis: physical deconditioning, fracture of the right tibial plateau, right rotator cuff tear Status at Discharge Cognitive/behavioral status at discharge: Alert oriented x3 Functional status at discharge: uses cane/walker Overall status at discharge: patient is progressing back to baseline Time Spent with Patient Time attestation: Total time spent providing and/or coordinating discharge services: Time spent: Greater than 30 minutes Exam Narrative: General: In no acute distress, well nourished Head: atraumatic, no encephalopathy Eyes: EOMI, PERRLA, sclera clear ENT: moist mucous membranes, nasal passages clear Neck: supple, no JVD, no adenopathy, trachea midline Cardiac: Normal S1 and S2. Murmur noted. No gallops or friction rubs, peripheral pulses intact. Respiratory: Lungs clear to auscultation, no adventitious lung sounds Gastrointestinal: soft, non-distended, non-tender, normoactive bowel sounds. : voiding without difficulty. Extremities: right lower extremity in knee immobilizer, limited range of motion of right upper extremity, reports weakness and right upper extremity and right lower extremity Skin: clean, dry, intact. No wounds or lesions. Neuro: Alert and oriented x4, cranial nerves intact, no neuro deficits. Psych: normal mood, normal affect, interactive DS: Data Data Completed and Pending Completed studies during hospitalization: none Pending studies at discharge: none Labs on day
--- NOTE | 2023-07-11 09:26 | PC.NURSE ---
Faxed discharge instructions to [facility] nursing [facility] rehab.
--- NOTE | 2023-07-11 09:35 | PC.NURSE ---
Patient discharged from room 203 to [facility] in [place]. Transportation by family. Patient assisted into vehicle with gait belt and walker. Verbalized understanding of discharge instructions
--- NOTE | 2023-07-14 12:01 | PC.NURSE ---
Discharge to [facility], no questions or concerns
== END 2023-07-11 09:35 | DRG 561 ==
PROVIDERS: Nurse Practitioner Acute Care; Nurse Practitioner Family; Admitting Provider Internal Medicine; Visit Provider Internal Medicine
DX: S82.141D Displaced bicondylar fracture of right tibia, subsequent encounter for closed fracture with routine healing (principal); S46.011D Strain of muscle(s) and tendon(s) of the rotator cuff of right shoulder, subsequent encounter; N18.9 Chronic kidney disease, unspecified; E11.22 Type 2 diabetes mellitus with diabetic chronic kidney disease; F17.210 Nicotine dependence, cigarettes, uncomplicated; R53.81 Other malaise; W10.9XXD Fall (on) (from) unspecified stairs and steps, subsequent encounter
CPT/HCPCS: 36415; 80048; 80053; 82948; 83036; 83735; 85027; 97110; 97161; 97165; 97530; 97535; A9270; J1650; J1815

== ENCOUNTER 2023-09-29 09:46 | Outpatient (RCR) | payer MEDICARE, SELFPAY ==
--- NOTE | 2023-09-29 11:46 | OPREHPOC ---
Outpatient Therapy Plan of Care This is a Multidisciplinary Plan of Care that may contain components documented by all disciplines (PT, OT, and ST.) PT Problem 1 PT Problem #1 Knowledge Deficit PT Goal 1 Goal Patient to demonstrate independence with HEP Target Visit 5 PT Problem 2 PT Problem #2 Pain PT Goal 1 Goal Patient to report highest pain at 2/10 with house hold tasks Target Visit 10 PT Problem 3 PT Problem #3 Impaired Range of Motion PT Goal 1 Goal Patient to demonstrate R knee active ROM 0-120 deg to return to stair navigation at PLOF Target Visit 10 PT Problem 4 PT Problem #4 Impaired Strength PT Goal 1 Goal Patient to demonstrate 4+/5 strength of the R LE to improve ability to step over shower threshold Target Visit 10 PT Problem 5 PT Problem #5 Impaired Functional Mobil PT Goal 1 Goal 1. Patient to complete 6 min walk test with no use of AD and step through gait pattern 2. Patient to report ability to step into shower with independence 3. Patient to navigate 2 step with no use of hand rail Target Visit 10
--- NOTE | 2023-09-29 11:46 | PTOPEVAL1 ---
Assessment and note entered by Ashtyn Villegas DPT Evaluation Information Assessment Status Evaluation Diagnosis R LE pain and weakness Onset 06/27/23 Subjective Information patient reports she she feel down her basement steps on Jun 27 and resulted in fractured R tibial plateau. she has been no weight bearing until about 10 days ago. she reports she has just started walking and returned home at her own house with assistance from her kids as needed. she reports her most difficult tasks is navigating the steps to get into her house and stepping into the shower. Reported Pain Level Pain Score 0: Self Report Pain Score 0: Self Report Assessment PT Clinical Summary Ms. Rodriguez is a 82 year old female who presents to PT with weakness s/p R tibial plateau fracture. She demonstrates decreased B LE weakness R>L, decreased R knee active ROM and impaired gait limiting her ability to navigate steps into her home, stepping into her shower and ambulating prolonged distances. She would benefit from skilled PT to address impairments and return to PLOF. Plan of Care Interventions Electrical Stimulation,Gait Training,Hot Pack/Cold Pack,Manual Therapy,Neuro Re-education,Patient/ Caregiver Educati,Therapeutic Activities, Therapeutic Exercise PT Services Indicated Yes Treatment Frequency and 2x weekly for 10 visits Duration These treatments will address the objective and functional deficits as defined above. The patient will be advanced safely and appropriately in order for the patient to progress towards his/her prior level of function. Additional exercises will be introduced and as well as a comprehensive home exercise program upon discharge, if needed, ?to ensure carryover of functional gains achieved in the clinic. This treatment plan has been reviewed and agreement upon by the patient.
--- NOTE | 2023-09-29 12:49 | OTOPEVAL1 ---
Assessment and note entered by Kareen Jones OT Evaluation Information Assessment Status Evaluation Assessment Status Evaluation Diagnosis Leg fracture, right; weakness Onset June 2023 Subjective Information The patient reports she has had pain in R shoulder after fall that was in June and some clicking but says it is only sometimes. She stated that she is independent with all ADLs and feels safe at home alone. Reported Pain Level Pain Score 0: Self Report Pain Score 0: Self Report Assessment OT Clinical Summary The patient is an 82 year old female who was referred to outpatient OT due to weakness following R leg fracture. The patient previously was independent with all ADLs and transfers without use of AE. Following release from NWB to R LE, the patient demonstrates modified independence with ADLs and transfers using walker at this time. She has adaptive techniques and assistance from family to maintain independence and safety at home. 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 Plan of Care OT Services Indicated No These treatments will address the objective and functional deficits as defined above. The patient will be advanced safely and appropriately in order for the patient to progress towards his/her prior level of function. Additional exercises will be introduced and as well as a comprehensive home exercise program upon discharge, if needed, ?to ensure carryover of functional gains achieved in the clinic. This treatment plan has been reviewed and agreement upon by the patient.
--- NOTE | 2023-10-30 10:08 | OPREHPOC ---
Outpatient Therapy Plan of Care This is a Multidisciplinary Plan of Care that may contain components documented by all disciplines (PT, OT, and ST.) PT Problem 1 PT Problem #1 Knowledge Deficit PT Goal 1 Goal Patient to demonstrate independence with HEP Target Visit 5 Progress Met PT Problem 2 PT Problem #2 Pain PT Goal 1 Goal Patient to report highest pain at 2/10 with house hold tasks. met for R LE. continue Target Visit 16 Progress Partially Met PT Problem 3 PT Problem #3 Impaired Range of Motion PT Goal 1 Goal Patient to demonstrate R knee active ROM 0-120 deg to return to stair navigation at PLOF. continue Target Visit 16 Progress Partially Met PT Problem 4 PT Problem #4 Impaired Strength PT Goal 1 Goal Patient to demonstrate 4+/5 strength of the R LE to improve ability to step over shower threshold. continue Target Visit 16 Progress Partially Met PT Problem 5 PT Problem #5 Impaired Functional Mobil PT Goal 1 Goal 1. Patient to complete 6 min walk test with no use of AD and step through gait pattern. partially met 2. Patient to report ability to step into shower with independence 3. Patient to navigate 2 step with no use of hand rail Target Visit 16 Comment continue all
--- NOTE | 2023-10-30 10:08 | PTOPREEVAL ---
Assessment and note entered by JT File, PT Evaluation Information Assessment Status Re-evaluation Diagnosis R LE pain and weakness Onset 06/27/23 Subjective Information patient reports she feels pretty good today. however, she reports she has some pain in the back and thinks maybe she slept wrong. she reports she continues to rely on the cane to ambulate, and needs railings to climb up and down steps. Reported Pain Level Pain Score 0,3: Self Report Pain Score 0: Self Report Assessment PT Clinical Summary mrs. mack presents to skilled PT for her 10th skilled therapy visit. as of this date, she displays improved R knee active rom, improved R LE strength, and improved gait mechanics. however, she still lacks achievement of all goals except for HEP performance. partial progress has been made towards goals, but patient would benefit from continued skilled PT to work towards achievement of remaining unmet goals, and thus improved functional activity performance. Plan of Care Interventions Gait Training,Manual Therapy,Neuro Re-education, Patient/Caregiver Educati,Therapeutic Activities, Therapeutic Exercise PT Services Indicated Yes Treatment Frequency and continue skilled PT 2x weekly for 6 more visits Duration These treatments will address the objective and functional deficits as defined above. The patient will be advanced safely and appropriately in order for the patient to progress towards his/her prior level of function. Additional exercises will be introduced and as well as a comprehensive home exercise program upon discharge, if needed, ?to ensure carryover of functional gains achieved in the clinic. This treatment plan has been reviewed and agreement upon by the patient.
== END 2023-11-19 13:17 | disposition home or self-care (01) ==
LOC: CHSOT 09:46
DX: M62.81 Muscle weakness (generalized) (principal)
CPT/HCPCS: 97110; 97112; 97116; 97150; 97161; 97165; 97530

== ENCOUNTER 2024-06-02 11:17 | Outpatient (CLI) | payer MEDICARE, SELFPAY ==
--- NOTE | ~2024-06-02 | MM_ITS ---
EXAMINATION: MM screening [facility] BI [facility] [place] HISTORY: Screening mammogram TECHNIQUE: Craniocaudal and mediolateral oblique 3-D tomosynthesis images were obtained and synthetic 2-D images were generated. CAD analysis was submitted and interpreted. COMPARISON: 04/12/2023, 02/19/2022, 01/11/2021 BREAST PARENCHYMAL COMPOSITION:Not Dense. There are scattered areas of fibroglandular density. FINDINGS: No suspicious mass, calcification, or architectural distortion are identified in either estee ast to suggest malignancy. There has been no suspicious interval change. IMPRESSION: No mammographic evidence of malignancy. Recommend routine screening mammography in one year. BI-RADS Category 1: Negative Reviewed, dictated and finalized at location . 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
== END 2024-06-02 11:18 | disposition home or self-care (01) ==
PROVIDERS: PCP Family Medicine; Visit Provider Family Medicine
DX: Z12.31 Encounter for screening mammogram for malignant neoplasm of breast (principal)
CPT/HCPCS: 77063; 77067

== ENCOUNTER 2025-05-02 11:52 | Outpatient (CLI) | payer MEDICARE, SELFPAY ==
--- NOTE | ~2025-05-02 | DEXA_ITS ---
Bone Density Report Name: MOHINDER KWOK Age: 84 Sex: Female Ethnicity: White Date of : 1940 Indication: postmenopausal; screening for osteoporosis; parental hip fracture; height loss; prior fracture; Referring Provider: BNEFAISAL Study: Bone densitometry was performed. Exam Date: May 02, 2025 Accession number: [id number] Bone Density: Region BMD T-score Z-score Classification AP Spine(L1-L4) 1.118 0.6 3.4 Normal World Health Organization criteria for BMD impression classify patients as: Normal (T-score at or above -1.0), Osteopenia (T-score between -1.0 and -2.5), or Osteoporosis (T-score at or below -2.5). Clinical Information Provided by Patient: Has had a low trauma fracture Parent has had a hip fracture Smokes Has used the following medications: Evista (i.e. raloxifene), Forteo (i.e. parathyroid hormone), Vitamin D, Calcium, multivitamin Patient maximum height was 65 Menopause Age: 52 Drinks caffeinated beverages Onset of menses at age 15 Number of children 2 Impression: The patient has normal bone mass. The patient has risk factors, including: parental hip fracture, smoking, previous fracture. Discussion: LOW RISK OF FRACTURE; BONE DENSITY IS WELL ABOVE THE MINIMUM DESIRABLE LEVEL AND ABOVE AVERAGE FOR AGE AND SEX AT ALL SKELETAL SITES TESTED. This person's bone density is above expected limits for age and sex. This is rarely clinically significant, but should be pursued if there are significant musculoskeletal complaints. The patient should follow a healthful lifestyle (good nutrition with adequate calcium and vitamin D, and appropriate weight-bearing exercise). Follow-Up: Consider repeating this study in 5 years or sooner if there is some new clinical indication. Reported by: LISBETH on 05/02/2025 3:03:00 PM. Reviewed, dictated and finalized at location A.
== END 2025-05-02 11:53 | disposition home or self-care (01) ==
PROVIDERS: PCP Hospitalist; Visit Provider Hospitalist
DX: Z78.0 Asymptomatic menopausal state (principal)
CPT/HCPCS: 77080